=== PATIENT | male | born 1945 | race Caucasian/White ===

== ENCOUNTER → 2023-12-25 09:55 | Outpatient (CLI) | payer MEDICARE, BC, SELFPAY ==
--- NOTE | 2023-12-25 | DI.RAD.S_ITS ---
PROCEDURE: FL BARIUM SWALLOW W SPEECH INDICATIONS: Dysphagia, unspecified COMPARISON: None. TECHNIQUE: Examination was conducted in conjunction with speech pathology per standard protocol. In the lateral projection, filming was performed of the patient swallowing. AP projection filming may also be performed with patient swallowing. COMPARISON: FINDINGS: Function: The oral preparatory phase appears normal, with proper containment. The subsequent oral propulsive phase, pharyngeal phase, and esophageal phase of swallowing also appear normal with all proffered substances. No laryngotracheal penetration or aspiration. No pathologic vallecular pooling. Slight delayed of swallowed barium tablet at the level of epiglottis is seen. Morphology: No cricopharyngeal bar is identified. No cervical esophageal webs. No Zenker's diverticulum. No strictures. IMPRESSION: No aspiration or penetration. Slight delayed swallowed barium tablet at the level of epiglottis. Please correlate with speech pathology notes for additional findings. Dictated by: Mickey Jenkins M.D. on 12/25/2023 at 13:01 Approved by: Mickey Jenkins M.D. on 12/25/2023 at 13:02
--- NOTE | 2023-12-25 14:52 | ST.SWALLOW ---
Visit Care Team Role Provider Type [facility] Provider Non-Staff Primary Care Provider Specialty: Family Practice Address: [address] [facility] [address], [place], [address] Email: Hortensia Samano MD Attending Provider Non-Staff Referring Provider Specialty: Family Practice Address: [address] [place] [address], [id number] Email: Modified Barium Swallow Study PHILOSOPHY INSTRUCTOR Modified Barium Swallow Study Start: 12/25/23 13:37 Freq: Status: Active Protocol: Document 12/25/23 13:37 LNK (Rec: 12/25/23 14:52 [id number]) Modified Barium Swallow Study Total Time Visit Start Time 10:45 Visit Stop Time 11:15 Total Visit Minutes [address] Hortensia Samano Reason for Referral Dysphagia Setting Setting Outpatient Care Patient Information Identification Type Name,Date of Patient History Pt was seen for a Modified Barium Swallow Study at the referral of his PCP. Pt reported a persistent cough with throat clearing. He also described difficulty with swallowing pills, reporting that they get stuck in his throat (pointing to mid-neck). When asked, pt denied difficulty with swallowing when eating/drinking. 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 Subjective Observations Pt was seated in the fluoroscopy chair with directions and procedures described for him. He indicated he understood and agreed to proceed. Patient Positioning Position View Lat-A/P Imaging Lateral View Textures Administered Trials Presented Thin Liquid via Spoon (IDDSI 0 ),Thin Liquid via Cup (IDDSI 0 ),Extremely Thick Liquid via Spoon (IDDSI 4),Regular (IDDSI 7) Barium Tablet Yes The IDDSI Framework Protocol: IDDSI.1 Oral Impairment Source: The Modified Barium Swallow Impairment Profile (MBSImP??) Lip Closure No labial escape Tongue Control During Bolus Hold Cohesive bolus between tongue to palatal seal Bolus Preparation/Mastication Timely & efficient chewing & mashing Bolus Transport/Lingual Motion Brisk tongue motion Oral Residue Complete oral clearance,Trace residue lining oral structures Location Tongue Initiation of Pharyngeal Swallow Bolus head at pyriforms Additional Oral Impairment Observations OME and DKS were observed to be WNL. Dentition included an upper denture with natural lower teeth. Two posterior lower molars were missing. Mastication was WNL with a rotary pattern and good bolus formation, control and AP transition. Delayed swallow initiation. Pharyngeal Impairment Source: The Modified Barium Swallow Impairment Profile (MBSImP??) Soft Palate Elevation No bolus between soft palate & pharyngeal wall Laryngeal Elevation Part.sup.move.thyroid cart/ part.approx.arytenoids to epiglot.petiole Anterior Hyoid Excursion Partial anterior movement Epiglottic Movement Partial inversion Laryngeal Vestibular Closure Complete; no air/contrast in laryngeal vestibule Pharyngeal Stripping Wave Absent Pharyngoesophageal Segment Opening Partial distention/partial duration; partial obstruction of flow Tongue Base Retraction Wide column of contrast/air betwn tongue base & post. pharyngeal wall Pharyngeal Residue Collection of residue within/ on pharyngeal structures Location Diffuse (>3 areas) Additional Pharyngeal Impairment Tongue base retraction Observations weakness, reduced hyolaryngeal elevation and movement with incomplete epiglottal inversion were observed. No stripping of the posterior pharyngeal wall was observed. For all trials the epiglottis partially inverted to a horizontal position with the tip curled against the posterior pharyngeal wall at the superior level of the ACDF hardware located at C4-C5. The hardware distorted the posterior pharynx enough that the epiglottis could not fully invert. This resulted in pooled residue of trials within the valeculla. A lateral trial with a barium tablet resulted in the tablet getting stuck in the valeculla , requiring additional swallows of water to clear. At that time, the pt reported the tablet as stuck. Additionally in the lateral position, reduction of the extension of the UES opening was observed. Residue was observed at the UES following the swallowing of the cookie trial, needing additional swallows of water. This appears to be related to the lower edge of the C4-C5 hardware pressing against posterior pharyngeal wall at the UES. This may contribute to the challenge this pt has with swallowing pills. A/P View Textures Administered Trials Presented Thin Liquid via Spoon (IDDSI 0 ) The IDDSI Framework Protocol: IDDSI.1 A/P View Observations Pharyngeal Contraction Complete Esophageal Clearance Upright Position Complete clearance; esophageal coating Vocal Fold Function Good Esophageal Function WFL Additional A-P Observations With a trial of thin liquids, the esophagus was observed to clear in a timely manner. A second tablet trial in the AP view resulted in the tablet again getting stuck in the valeculla. Subsequent trials of liquid cleared the tablet to the stomach. Clinical Impressions Dysphagia Type Pharyngeal Findings The pt presented with pharyngeal dysphagia that appears to be a consequence of pharyngeal weakness in the tongue base as well as interference of complete epiglottal inversion due to the ACDF hardware positioning. This pt may benefit from swallow therapy targeting tongue base strengthening. Increased base of tongue strength should aid in elevation of the hyolaryngeal system and allow adequate space for complete epiglottal inversion. The results of this MBSS were discussed with the pt with discussion of potential benefit from swallow therapy. It was also suggested that the pt may consider using a carrier with pills to ease swallowing. Pt indicated he understood and was appreciative. Rehabilitation Potential Good Patient Appropriate for Therapy Yes: Base of tongue strengthening Recommendations Diet Comments No diet changes at this time Treatment Plan Therapy Recommendations Outpatient Speech Therapy Additional Strategies Recommended Medications in a carrier was suggested to the pt.
== END ==
LOC: RAD 09:59
PROVIDERS: Family Provider Registered Nurse; PCP Registered Nurse; Referring Provider Family Medicine; Visit Provider Family Medicine
DX: R13.10 Dysphagia, unspecified (principal)
CPT/HCPCS: 74230; 92611